=== PATIENT | female | born 1970 | race American Indian/Alaskan Native ===

== ENCOUNTER 2016-08-26 07:08 | Emergency (ER) | payer OTHER ==
[2016-08-26 07:36] VITALS: BP 118/74
[2016-08-26] MEDS ORDERED: NORCO 5/325 PO ONE (08:43)
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
--- NOTE | 2016-08-26 10:06 | XRay Report ---
LUMBOSACRAL SPINE, 3 VIEWS: History: Back pain Findings: The vertebral bodies, disk spaces and posterior elements are intact. No compression deformity or malalignment. The SI joints are symmetric and unremarkable. Impression: 1. No evidence for acute injury to the lumbar spine.
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
== END 2016-08-26 11:00 | disposition home or self-care (01) ==
LOC: ED 07:08
DX: M79.604 Pain in right leg (principal); M25.561 Pain in right knee; M25.562 Pain in left knee; M54.9 Dorsalgia, unspecified; I10 Essential (primary) hypertension; M19.90 Unspecified osteoarthritis, unspecified site; E78.00 Pure hypercholesterolemia, unspecified; Z90.49 Acquired absence of other specified parts of digestive tract
CPT/HCPCS: 72070; 72100